=== PATIENT | female | born 1940 | race Two or more races ===

== ENCOUNTER 2022-04-08 15:27 | Emergency (ER) | payer OTHER ==
[~2022-04-08] VITALS: Ht 167.6 cm; Wt 77.2 kg
[2022-04-08 15:56] VITALS: BP 186/95
== END 2022-04-08 15:54 | disposition left against medical advice (07) ==
LOC: EDBD 15:27 → ER 15:27
DX: R06.02 Shortness of breath (principal); Z53.21 Procedure and treatment not carried out due to patient leaving prior to being seen by health care provider